=== PATIENT | male | born 1960 | race Caucasian/White ===

== ENCOUNTER 2022-10-29 12:42 | Emergency (ER) | payer OTHER, SELFPAY ==
[2022-10-29 13:02] VITALS: BP 122/75; PULSE 80; RESP 20; TEMP 36.7; O2SAT 97
--- NOTE | 2022-10-29 13:25 | ED.URI ---
HPI - URI/Sore Throat General Chief Complaint: Upper Respiratory Infection Stated Complaint: Headache,Sore Throat,Cough Time Seen by Provider: 10/29/22 13:25 Source: patient, RN notes reviewed and old records reviewed Mode of arrival: ambulatory Limitations: no limitations History of Present Illness HPI Narrative: 62 year old male presents to [facility] care with complaints of 4 day history of cough, sore throat, nausea, headache and body aches. Patient reports that he has taken Zicam and Tylenol for his discomfort. Patient denies any fevers chills or sweats, no vomiting or diarrhea does state thick white productive cough. Patient reports he has had exposure to COVID at work. [place] reports that he has been COVID vaccinated. MD elicited complaint: cough, sore throat and other (headache, nausea, body aches) Onset (ago): day(s) (4) Pain scale (0-10): 3 Description of mucous: other (thick) Able to tolerate fluids by mouth: Yes Treatments prior to arrival: acetaminophen and other (Zicam) Related Data Home Medications Medication Instructions Recorded Confirmed No Home Medications 06/18/21 10/29/22 Allergies Allergy/AdvReac Type Severity Reaction Status Date / Time No Known Allergies Allergy Verified 10/29/22 13:29 Review of Systems Review of Systems: CONSTITUTIONAL: Denies malaise, chills, sweats, or fever. EYES: Denies visual changes, redness, or discharge. ENT: Reports rhinorrhea, congestion,no sinus pain,no otalgia positive sore throat. CARDIOVASCULAR: Denies chest pain, palpitations, or edema. RESPIRATORY: Reports cough.? Denies dyspnea. GASTROINTESTINAL: Denies abdominal pain, nausea, vomiting, diarrhea SKIN: Denies rash or itching. MUSCULOSKELETAL:Reports myalgia. NEUROLOGIC: Reports headache. 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 Surgical History Surgical History (Updated 10/31/22 @ 10:29 by Consuelo White NP) History of orthopedic surgery pin inserted left 5th finger then removed Family History Family History Father Family history of malignant neoplasm of urinary bladder Social History Social History Smoking status: Never smoker Tobacco type: smokeless tobacco Second hand tobacco smoke exposure: Yes Additional smoking assessment comments: chews tobacco daily Alcohol intake: current Alcohol use details: social Lack of Transportation: No Lack of Food: Never True Current Housing: I Have Housing Concerned About Future Housing: Decline to Answer Difficulty Paying Gas/Electric Bills: Decline to Answer Difficulty Paying for Meds: Decline to Answer Currently Unemployed: YES Education: Grade School Difficulty w/ Childcare or Family Care: No Comments At time of signature, agree with nursing past medical, surgical, social and family history. There is no relevant family history pertinent to the presenting complaint Exam Narrative: GENERAL: Well-appearing, well-nourished, and in no acute distress. HEAD: Normocephalic EYES: PERRLA, conjunctivae clear ENT: Nares clear, turbinates edematous and erythematous, clear discharge. Mucous membranes moist. TM pearly brown with dull light reflex bilaterally; no tragal tenderness. Oropharynx erythematous without lesions. Tonsils not enlarged and without exudate, no drooling, no hoarseness, no trismus, uvula midline. NECK: Supple. No lymphadenopathy CHEST: Clear to auscultation, breath sounds equal. No wheezing, rhonchi, rales, or stridor. No respiratory distress, speaks in full sentences.cough no dyspnea SAO2 97% on room air HEART: Regular rate and rhythm. No murmur heard. SKIN: Warm, dry, no rash. NEURO: Alert and oriented
== END 2022-10-29 14:02 | disposition home or self-care (01) ==
PROVIDERS: Emergency Provider Registered Nurse; PCP Internal Medicine
DX: J06.9 Acute upper respiratory infection, unspecified (principal); Z20.822 Contact with and (suspected) exposure to COVID-19; F17.220 Nicotine dependence, chewing tobacco, uncomplicated
CPT/HCPCS: 87081; 87426; 87804; 87880; 99213; C9803; G0463

== ENCOUNTER 2023-09-02 17:20 | Outpatient (CLI) | payer OTHER, SELFPAY ==
--- NOTE | ~2023-09-02 | XR_ITS ---
Right Shoulder Technique: AP and scapular Y views were obtained. Clinical History: Pain Findings: No fracture or dislocation is seen. Osseous alignment is anatomic. The glenohumeral and acr omioclavicular joint spaces are preserved. Soft tissues are unremarkable. Impression: Unremarkable right shoulder radiographs. Reviewed, dictated and finalized at [facility]. Impression: Unremarkable right shoulder radiographs.
== END 2023-09-02 17:21 | disposition home or self-care (01) ==
LOC: ANHIMG 17:21
PROVIDERS: PCP Internal Medicine; Visit Provider Internal Medicine
DX: M25.511 Pain in right shoulder (principal); G89.29 Other chronic pain
CPT/HCPCS: 73030

== ENCOUNTER 2023-10-04 06:41 | Outpatient (CLI) | payer OTHER, SELFPAY ==
--- NOTE | ~2023-10-04 | MR_ITS ---
EXAMINATION: MR shoulder RT wo con DATE: 10/04/2023 08:11 INDICATION: Right shoulder pain TECHNIQUE: Magnetic resonance imaging (MRI) of the right shoulder was performed without intravenous c ontrast. Sequences included axial PD-weighted FS FSE, coronal oblique PD-weighted FS FSE, coronal obl ique T2-weighted FS FSE, sagittal PD-weighted FS FSE, and sagittal T1-weighted SE. COMPARISON: None. FINDINGS: Coracoacromial arch: The acromion undersurface is flat in morphology (type I). The coracoacromial ligament is normal. Mild acromioclavicular osteoarthritis. Rotator cuff: Mild supraspinatus and infraspinatus tendinopathy. Focally more intense increased signal of less than fluid intensity extending from 6 mm AP along the middle facet footplate of the infraspinatus tendon equivocal for small intrasubstance tear versus focally more severe tendinopathy. The teres minor tend on is normal. Mild subscapularis tendinopathy without tear. Normal rotator cuff muscle bulk and signa l. Biceps tendon, glenoid labrum and glenohumeral cartilage: Long head of the biceps tendon is normal. There is a superior, anterior to posterior tear of the joão oid labrum (SLAP tear) extending from the 12:30 to the 10:00 position of the superior to posterosuper ior glenoid labrum. Glenohumeral cartilage is normal. Fluid: Physiologic amount of fluid in the glenohumeral joint and biceps tendon sheath. No loose osteochondr al bodies. No abnormal increased fluid signal in the subacromial/subdeltoid bursa to suggest bursitis . Bones: Normal marrow signal with no edema, fracture or abnormal marrow replacing process. IMPRESSION: 1. SLAP tear at the superior to posterosuperior glenoid labrum. 2. Mild rotator cuff tendinopathy with focal more intense increased signal of less than fluid intensi ty along a small region of the middle facet footplate of the infraspinatus tendon with equivocal for focal more severe tendinopathy versus possible small intrasubstance tear. Reviewed, dictated and finalized at [facility]. IMPRESSION: 1. SLAP tear at the superior to posterosuperior glenoid labrum. 2. Mild rotator cuff tendinopathy with focal more intense increased signal of l ess than fluid intensity along a small region of the middle facet footplate of the infraspinatus tendon with equivocal for focal more severe tendinopathy vers us possible small intrasubstance tear.
== END 2023-10-04 06:42 | disposition home or self-care (01) ==
PROVIDERS: PCP Internal Medicine; Visit Provider Internal Medicine
DX: S43.431A Superior glenoid labrum lesion of right shoulder, initial encounter (principal); X58.XXXA Exposure to other specified factors, initial encounter
CPT/HCPCS: 73221